=== PATIENT | female | born 1990 ===

== ENCOUNTER 2017-12-29 13:53 | Emergency (ER) | payer OTHER ==
[2017-12-29 13:54] VITALS: BMI 34.9
[2017-12-29 14:09] VITALS: O2SAT 100
[2017-12-29 15:04] LABS: BASO % 0.6 % (0.0-2.0); EOS # 0.1 K/uL (0.0-0.7); EOS % 0.7 % (0.0-4.0); HEMOGLOBIN 9.7 g/dL (12.0-16.0); LYMPH # 1.5 K/uL (1.0-4.3); LYMPH % 21.7 % (20.0-40.0); MEAN CELL VOLUME 68.4 fl (81.0-99.0); MEAN CORPUSCULAR HEMOGLOBIN 21.5 pg (27.0-31.0); MEAN CORPUSCULAR HGB CONC 31.4 g/dL (33.0-37.0); MONO # 0.5 K/uL (0.0-0.8); NEUT # 4.9 K/uL (1.8-7.0); RBC 4.54 Mil/uL (3.80-5.20); RED CELL DISTRIBUTION WIDTH 16.9 % (11.5-14.5)
[2017-12-29 15:14] LABS: ALBUMIN 3.8 g/dL (3.5-5.0); ALT/SGPT 31 U/L (9-52); AST/SGOT 19 U/L (14-36); BLOOD UREA NITROGEN 14 mg/dl (7-17); CALCIUM 8.7 mg/dL (8.4-10.2); GFR NON-AFRICAN AMERICAN > 60
[2017-12-29 15:25] LABS: B-TYPE NATRIURETIC PEPTIDE 299 pg/ml (0-450)
--- NOTE | 2017-12-29 15:50 | RAD ---
Date of service: 12/29/2017 HISTORY: chest pain/ r/o infiltrate COMPARISON: No prior. TECHNIQUE: Chest PA and lateral FINDINGS: LUNGS: No active pulmonary disease. PLEURA: No significant pleural effusion identified. No pneumothorax apparent. CARDIOVASCULAR: Normal. OSSEOUS STRUCTURES: No significant abnormalities. VISUALIZED UPPER ABDOMEN: Normal. OTHER FINDINGS: None. IMPRESSION: No active disease.
--- NOTE | 2017-12-29 16:51 | ED PDOC ---
HPI: Chest Pain Time Seen by Provider: 12/29/17 14:26 Chief Complaint (Nursing): Chest Pain Chief Complaint (Provider): Chest Pain History Per: Patient History/Exam Limitations: no limitations Onset/Duration Of Symptoms: Hrs Current Symptoms Are (Timing): Still Present Additional Complaint(s): 27 year old female with pmHx of anemia and HTN, arrives to ED for an evaluation of left-sided chest pain status post carrying a heavy bookbag for several hours today. She reports additional shortness of breath that worsen with deep breathing. Patient denies similar symptoms prior to onset or use of oral contraceptives but expresses concern as her sister has Hx of a blood clot. She notes having experienced left leg pain last week which resolved spontaneously. Otherwise, no dizziness, syncope, or headaches reported. PMD: Dr. Keenan Nickerson Past Medical History Reviewed: Historical Data, Nursing Documentation, Vital Signs Vital Signs: Last Vital Signs Temp 98.5 F 12/29/17 14:07 Pulse 81 12/29/17 14:07 Resp 18 12/29/17 14:07 BP 115/78 12/29/17 14:07 Pulse Ox 100 12/29/17 14:07 - Medical History PMH: Anemia, HTN (denies) - Surgical History Surgical History: No Surg Hx - Family History Family History: States: Unknown Family Hx - Social History Current smoker - smoking cessation education provided: No Alcohol: None Drugs: Denies - Immunization History Hx Tetanus Toxoid Vaccination: No Hx Influenza Vaccination: No Hx Pneumococcal Vaccination: No - Home Medications Home Medications: Ambulatory Orders Medication Instructions Recorded RX: Meclizine [Meclizine*] 25 mg PO Q6 PRN #20 tab 12/20/17 RX: Naproxen [Naprosyn] 1 tab PO BID PRN #25 tab 12/20/17 RX: Ibuprofen [Motrin Tab] 600 mg PO Q6 PRN #15 tab 12/29/17 - Allergies Allergies/Adverse Reactions: Allergies Allergy/AdvReac Type Severity Reaction Status Date / Time No Known Allergies Allergy Verified 12/29/17 14:07 Review of Systems ROS Statement: Except As Marked, All Systems Reviewed And Found Negative Cardiovascular: Positive for: Chest Pain (left-sided) Respiratory: Positive for: Shortness of Breath, Pleuritic Pain Musculoskeletal: Positive for: Leg Pain (left-sided - resolved) Neurological: Negative for: Headache, Dizziness (or syncope) Physical Exam - Reviewed Nursing Documentation Reviewed: Yes Vital Signs Reviewed: Yes - Physical Exam Appears: Positive for: Non-toxic, No Acute Distress Head Exam: Positive for: ATRAUMATIC, NORMAL INSPECTION, NORMOCEPHALIC Skin: Positive for: Normal Color, Warm, Dry Eye Exam: Positive for: Normal appearance, EOMI, PERRL ENT: Positive for: Normal ENT Inspection Neck: Positive for: Normal, Supple Cardiovascular/Chest: Positive for: Regular Rate, Rhythm, Chest Non Tender. Negative for: Murmur Respiratory: Positive for: Normal Breath Sounds. Negative for: Wheezing, Respiratory Distress Gastrointestinal/Abdominal: Positive for: Normal Exam, Soft Extremity: Positive for: Normal ROM (upper/lower). Negative for: Pedal Edema (bilaterally), Calf Tenderness (bilaterally) Neurologic/Psych: Positive for: Alert (x3), Oriented. Negative for: Motor/Sensory Deficits - Laboratory Results Result Diagrams: 12/29/17 14:50 12/29/17 14:50 Urine POC: Negative - ECG O2 Sat by Pulse Oximetry: 100 (RA) Pulse Ox Interpretation: Normal Medical Decision Making Medical Decision Making: Initial Impression: Chest pain Initial Plan: * EKG * Labs * CXR * Tylenol 650mg PO Time: 1609 --EKG: sinus rhythm at [address] changes. --CXR: no active disease noted, as interpreted by provider. --Labs: elevated D-dimer at 359ng/mlDDU. --CTA chest ordered, given family hx, to rule out PE. Accession No. : [id number] Patient Name / ID : ELI GALVAN / [id number] Exam Date : 12/29/2017 17:39:17 ( Approved ) Study Comment : Sex / Age : F / 27Y Creator : Hal Jean Baptiste MD Dictator : Hal Jean Baptiste MD Track Service Person : Therapist'S Assistant : Hal Jean Baptiste MD Approver2 : Report Date : 12/29/2017 18:49:28 My Comment : Date of service: 12/29/2017 PROCEDURE: CT Chest with contrast (Pulmonary Angiogram) HISTORY: chest pain r/o PE COMPARISON: None available. TECHNIQUE: Axial computed tomography images were obtained of the chest in the pulmonary arterial phase of enhancement. Coronal and sagittal reformatted images were created and reviewed. Intravenous contrast dose: 90 mL Visipaque 320 Radiation dose: Total exam DLP = 340.58 mGy-cm. This CT exam was performed using one or more of the following dose reduction techniques: Automated exposure control, adjustment of the mA and/or kV according to patient size, and/or use of iterative reconstruction technique. FINDINGS: PULMONARY ARTERIES: Technically limited examination. Unable to adequately evaluate segmental/subsegmental pulmonary artery branches. No large central pulmonary embolus identified. AORTA: No acute findings. No thoracic aortic aneurysm. LUNGS: Unremarkable. No nodule, mass or pulmonary consolidation. PLEURAL SPACES: Unremarkable. No effusion or pneumothorax. HEART: Unremarkable. No cardiomegaly. No significant pericardial effusion. LYMPH NODES: No lymphadenopathy. BONES, CHEST WALL: Unremarkable. 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 IMPRESSION: Technically limited. Unable to exclude pulmonary artery embolism in segmental or subsegmental pulmonary artery branches. No large central embolus. No other acute abnormality. pt denies current symptoms, HR normal, no chest pain or SOB. Given clinical picture unlikely to be acute PE. DC from ED Scribe Attestation: Documented by Sarah Church, acting as a scribe for Daniel Hollingsworth III, DO. Provider Scribe Attestation: All medical record entries made by the Scribe were at my direction and personally dictated by me. I have reviewed the chart and agree that the record accurately reflects my personal performance of the history, physical exam, medical decision making, and the department course for this patient. I have also personally directed, reviewed, and agree with the discharge instructions and disposition. Disposition - Clinical Impression Clinical Impression: Chest pain - Patient ED Disposition Is Patient to be Admitted: No Counseled Patient/Family Regarding: Studies Performed, Diagnosis, Rx Given - Disposition Referrals: [facility] [Outside] Disposition: Routine/Home Disposition Time: 17:45 (approx) Condition: STABLE Additional Instructions: Avoid heavy exertion return to ER for any worse or new symptoms. Prescriptions: RX: Ibuprofen [Motrin Tab] 600 mg PO Q6 PRN #15 tab PRN Reason: Pain, Moderate (4-7) Instructions: Chest Pain Forms: [facility] (Faroese), [facility] School/Work Excuse
[2017-12-29] MEDS ORDERED: Iodixanol 320 MG/ML 100 ML BOTTLE IV ONE (16:53)
[2017-12-29] MEDS ORDERED: Sodium Chloride 0.9% 50 ML IV ONE (16:53)
--- NOTE | 2017-12-29 18:53 | CT ---
Date of service: 12/29/2017 PROCEDURE: CT Chest with contrast (Pulmonary Angiogram) HISTORY: chest pain r/o PE COMPARISON: None available. TECHNIQUE: Axial computed tomography images were obtained of the chest in the pulmonary arterial phase of enhancement. Coronal and sagittal reformatted images were created and reviewed. Intravenous contrast dose: 90 mL Visipaque 320 Radiation dose: Total exam DLP = 340.58 mGy-cm. This CT exam was performed using one or more of the following dose reduction techniques: Automated exposure control, adjustment of the mA and/or kV according to patient size, and/or use of iterative reconstruction technique. FINDINGS: PULMONARY ARTERIES: Technically limited examination. Unable to adequately evaluate segmental/subsegmental pulmonary artery branches. No large central pulmonary embolus identified. AORTA: No acute findings. No thoracic aortic aneurysm. LUNGS: Unremarkable. No nodule, mass or pulmonary consolidation. PLEURAL SPACES: Unremarkable. No effusion or pneumothorax. HEART: Unremarkable. No cardiomegaly. No significant pericardial effusion. LYMPH NODES: No lymphadenopathy. BONES, CHEST WALL: Unremarkable. 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 IMPRESSION: Technically limited. Unable to exclude pulmonary artery embolism in segmental or subsegmental pulmonary artery branches. No large central embolus. No other acute abnormality.
[2017-12-29 19:45] VITALS: BP 138/78; PULSE 68; RESP 18; TEMP 97.8
--- NOTE | 2017-12-30 10:43 | CARD ---
APPROVED REPORT Date of service: 12/29/2017 EKG Measurement Heart [id number] CT [id number] [id number] <Conclusion> Normal sinus rhythm Normal ECG
== END 2017-12-29 20:20 | disposition home or self-care (01) ==
LOC: H.ER 13:53
DX: R07.89 Other chest pain (principal); D64.9 Anemia, unspecified; I10 Essential (primary) hypertension
CPT/HCPCS: 71046; 71275; 80053; 81025; 83880; 84484; 85025; 85378; 93005; 99284; Q9967